=== PATIENT | female | born 2005 | race Caucasian/White ===

== ENCOUNTER 2024-04-01 11:16 | Outpatient (RCR) | payer BC, SELFPAY ==
[2024-04-01 12:49] LABS: hCG Titer Quant., Serum < 1 mIU/mL (1-3)
[2024-04-01 13:10] LABS: AST(SGOT) 21 U/L (15-37); Alanine Aminotransfer ALT/SGPT 34 U/L (13-56); Triglycerides 232 mg/dL
== END 2024-04-01 18:00 | disposition home or self-care (01) ==
LOC: LAB 11:16
DX: L70.0 Acne vulgaris (principal); Z79.899 Other long term (current) drug therapy
CPT/HCPCS: 36415; 84450; 84460; 84478; 84702

== ENCOUNTER 2024-04-30 07:26 | Outpatient (RCR) | payer BC, SELFPAY ==
[2024-04-30 08:42] LABS: hCG Titer Quant., Serum < 1 mIU/mL (1-3)
[2024-04-30 08:46] LABS: AST(SGOT) 17 U/L (15-37); Alanine Aminotransfer ALT/SGPT 26 U/L (13-56); Triglycerides 286 mg/dL
== END 2024-04-30 18:00 | disposition home or self-care (01) ==
LOC: LAB 07:26
DX: L70.0 Acne vulgaris (principal); Z79.899 Other long term (current) drug therapy
CPT/HCPCS: 36415; 84450; 84460; 84478; 84702

== ENCOUNTER 2024-05-30 07:14 | Outpatient (RCR) | payer BC, SELFPAY ==
[2024-05-30 08:28] LABS: AST(SGOT) 15 U/L (15-37); Alanine Aminotransfer ALT/SGPT 24 U/L (13-56); Triglycerides 184 mg/dL; hCG Titer Quant., Serum < 1 mIU/mL (1-3)
== END 2024-06-28 18:00 | disposition home or self-care (01) ==
LOC: LAB 07:14
DX: L70.0 Acne vulgaris (principal); Z79.899 Other long term (current) drug therapy
CPT/HCPCS: 36415; 84450; 84460; 84478; 84702

== ENCOUNTER 2024-07-01 08:16 | Outpatient (RCR) | payer BC, SELFPAY ==
[2024-07-01 09:32] LABS: AST(SGOT) 14 U/L (15-37); Alanine Aminotransfer ALT/SGPT 19 U/L (13-56); Triglycerides 200 mg/dL
[2024-07-01 09:35] LABS: hCG Titer Quant., Serum < 1 mIU/mL (1-3)
== END 2024-07-01 18:00 | disposition home or self-care (01) ==
LOC: LAB 08:16
DX: L70.0 Acne vulgaris (principal); Z79.899 Other long term (current) drug therapy
CPT/HCPCS: 36415; 84450; 84460; 84478; 84702